=== PATIENT | male | born 1935 ===

== ENCOUNTER 2016-06-06 05:07 | Inpatient (IN) | payer MEDICARE ==
[~2016-06-06] VITALS: Ht 175.3 cm; Wt 78.7 kg
--- NOTE | 2016-06-06 20:30 | ER ---
ADMIT: 06/06/2016 RM/LOC: ER [facility] MR#: [id number] [id number] [place], [place] [address] [place] [address] Emergency Room Report SEX: M AGE: 80 : 1935 DATE: 06/06/2016 CHIEF COMPLAINT: Respiratory distress. HISTORY OF PRESENT ILLNESS: The patient is an 80-year-old male, transferred by [facility] for escalating respiratory distress, hypoxemia, hemoptysis with foul-looking sputum for the past 3 days. The patient is an O2 dependent COPD patient, recently admitted to [facility]. The patient quit smoking approximately 15 years ago after greater than 50-pack year history. PAST MEDICAL HISTORY: ILLNESSES: Hypertension, O2 dependent COPD, chronic kidney disease, low back pain, hyperlipidemia, dementia, hypothyroidism. OPERATIONS: None. ALLERGIES: JULISSA. MEDICATIONS: Please see [facility] MAR. SOCIAL HISTORY: , retired. Past smoker. No alcohol or illicit drugs. FAMILY HISTORY: Negative per chart review. REVIEW OF SYSTEMS: A 12-point review of systems negative for all other systems, illnesses, or operations except as outlined above. PHYSICAL EXAMINATION: VITAL SIGNS: Temp 96.1, pulse 90, respirations 18, BP 130/70, SaO2 of 92% for 10 L. GENERAL: Mild respiratory distress. Maintaining sats mid 90s on high-flow O2, typically on 2.5. HEENT: Normocephalic. No evidence of epistaxis, rhinorrhea, or otorrhea. NECK: Supple without lymphadenopathy or thyromegaly. CHEST: Breath sounds equal, diminished with faint expiratory wheeze. HEART: Regular rate and rhythm without murmur, gallop, or edema. ABDOMEN: Soft, nontender, nondistended without mass or megaly. Bowel sounds hypoactive. EXTREMITIES: No evidence of Homans sign, synovitis, or dermatitis. Neuro: EOMI. PERRLA. No evidence of drift, dysarthria, or ataxia. Gait not assessed. MEDICAL DECISION MAKING: Patient given continuous albuterol and DuoNeb, magnesium, Solu-Medrol, and Levaquin with improvement, still maintained high- flow O2. Chest x-ray confirms right greater than left lower lobe pneumonia. CTA chest shows no obvious large PE. Radiology report pending. WBC 14.6, lactic 1.6, CRP 22.5, creatinine 1.7, glucose 103, BNP 978, D-dimer 1.45, troponin less than 0.015. EKG showed sinus rhythm with APCs, left atrial enlargement, right bundle-branch block with left anterior fascicular block, ADMIT: 06/06/2016 RM/LOC: [facility] MR#: [id number] [address] [address] [place] [address] Emergency Room Report SEX: M AGE: 80 : 1935 and [facility], no prior tracing. Discussed findings and disposition with Dr. Miller, who agreed and gave orders to nursing staff. DIAGNOSES: 1. Acute exacerbation of chronic obstructive pulmonary disease. 2. Bibasilar pneumonia, right greater than left. RECOMMENDATION: Admit inpatient for Dr. Miller. ADMISSION AND DISCHARGE CONDITION: Fair. Patient is a full code. Fernandez Booth MD/ rupesh JOB #: [id number] CC: Fernandez Booth MD, Attending Physician Talon Miller MD, Family Physician
--- NOTE | 2016-06-07 14:35 | CO ---
ADMIT: 06/06/2016 RM/LOC: 307 [facility] MR#: [id number] [address] [address] [place] [address] Consultation SEX: M AGE: 80 : 1935 DATE OF CONSULTATION: 06/07/2016 ATTENDING PHYSICIAN: Alfonso Moralez CONSULTING PHYSICIAN: Estephania Castellano APRN TIME IN: 1000 hours. TIME-OUT: 1030 hours. REASON FOR CONSULTATION: Supportive care consultation was requested by Dr. Moralez for discussion of goals for care and code status. HISTORY OF PRESENT ILLNESS: Mr. Santoyo is an 80-year-old, male with a history of severe COPD, for which he wears chronic oxygen therapy. He has most recently been living at the [facility]. He is admitted on 06/06 with increasing shortness of breath, cough, and fever. CT of the chest revealed bilateral opacities and was negative for pulmonary embolism. He remains in the ICU being treated for bilateral pneumonia. Speech Therapy did evaluate him and he was not found to be an aspiration risk. Apparently, there has been some confusion regarding his wishes in terms of resuscitative measures. His paperwork from the [facility] does designate him as a do not resuscitate in terms of CPR and defibrillation, however, it does not specify anything in terms of ventilator support. Dr. Moralez did have a conversation with the patient initially and he said that intubation was okay. However, there has been times this morning that the patient has been verbalizing that he does not want to be poked for lab any longer, and that he perhaps does not want to pursue aggressive interventions. Due to his complexities, supportive care consultation was requested to discuss goals for care. In terms of advanced directives, the patient does have the [facility] paperwork on file which states that he is a do not resuscitate. It is also of note that he initialed the box on the advanced directives for no further treatment, however, he did not check specifically what he would want. Apparently, there was discussion with the patient's son in the beginning of his hospital stay, and he did direct that the patient be treated for his current condition. The patient's son Manas Santoyo is his next of kin decision maker. His phone #[phone]. Symptomatically, the patient is weak and debilitated. He is dyspneic with conversation. He denies pain or other discomfort. It is of note that he does have a documented diagnosis of mild cognitive impairment, it is evident during our conversation that at times he has a hard time with details of conversation and recalling specifics. PAST MEDICAL HISTORY: 1. COPD for which he wears oxygen. 2. Hypertension. 3. Mild cognitive impairment. ADMIT: 06/06/2016 RM/LOC: [address] [place] [address] MR#: [id number] [address] [address] [place] [address] Consultation SEX: M AGE: 80 : 1935 4. Hypothyroidism. 5. Hyperlipidemia. 6. Stage 3 chronic kidney disease. 7. Chronic low back pain. ALLERGIES: THE PATIENT IS ALLERGIC TO NICKEL. CURRENT MEDICATIONS: Please see the patient's MAR for specific routes and dosages. His current medications are as follows. 1. Pepcid. 2. Senokot. 3. MiraLax. 4. Levaquin. 5. Zosyn. 6. DuoNeb. 7. Solu-Medrol. 8. Vancomycin. 9. Tums. 10.Asmanex. 11.Spiriva. 12.Synthroid. 13.Tylenol. 14.Nitrostat. SOCIAL HISTORY: The patient lives at the [facility]. He currently does not use alcohol or tobacco, but does have a past smoking history. FAMILY HISTORY: Reviewed and noncontributory. FUNCTIONAL REVIEW: Prior to his hospital stay, he states that he could ambulate and sit at the edge of the bed at the [facility]. He was requiring assistance with ADLs. His palliative performance scale prior to admission sounds to be around 50% to 60%. Currently, he is mostly in bed. He is requiring mainly assistance. His intake is normal to reduced. He is a little confused. His current palliative performance score is 40%. REVIEW OF SYSTEMS: A 10-point review of systems was completed and other than those pertinent positives and negatives mentioned in the HPI, it is negative. PHYSICAL EXAMINATION: GENERAL: The patient is examined in the bed. He is in no acute distress. VITAL SIGNS: Temperature 97.8, pulse 84, respirations 16, blood pressure 125/45, oxygen 91% on 6 L per nasal cannula. HEENT: Head is normocephalic. Pupils are equal, round, and reactive with a diameter of 3 mm bilaterally. Oral mucosa pink and moist with fair dentition. NECK: Supple. RESPIRATORY: Respirations are slightly labored with conversation. LUNGS: Diminished throughout bilaterally. ADMIT: 06/06/2016 RM/LOC: 307 [facility] MR#: [id number] [address] [place] [address] [place] [address] Consultation SEX: M AGE: 80 : 1935 CARDIOVASCULAR: Rate and rhythm regular without murmurs, rubs, or gallops. No edema noted. GASTROINTESTINAL: Soft, nontender. Bowel sounds are positive. MUSCULOSKELETAL: Generalized weakness. No obvious joint deformities. INTEGUMENTARY: Skin turgor is fair. No rashes or wounds noted. NEUROLOGIC: Alert and oriented x3, but as mentioned, he will demonstrate intermittent mild confusion by making statements that contradict each other. PSYCHIATRIC: Calm and cooperative. No agitation or delirium noted. DIAGNOSTIC DATA: Sodium 139, potassium 3.6, BUN 44, creatinine 1.8, total protein 6.1, albumin 2.5. WBC is 16.7, hemoglobin 12.6, hematocrit 37.4, platelets are 200. IMPRESSION: 1. Physical debility. 2. Mild cognitive impairment. 3. Fatigue. 4. Malaise. 5. Dyspnea with conversation. 6. Moderate protein-calorie malnutrition. 7. Acute on chronic hypoxic respiratory failure. 8. Bilateral healthcare-associated pneumonia. 9. Severe chronic obstructive pulmonary disease. 10.A [address] lung nodule on CT scan. 11.Chronic kidney disease. 12.Palliative care. 13.The patient is currently a DNR, however, okay for intubation. PLAN: I was able to meet with the patient at the bedside. As mentioned, he is alert and oriented x3, but at times seems to be mildly confused regarding details, and will sometimes say statements that contradict each other. For example, I did discuss his wishes regarding intubation and he states "I am a DNR." He confirms no CPR and states that he would not want to go on the ventilator. He is able to tell me that he would if he did not go on the ventilator should he need it. He states that he is ready to "go see [place]." In the next sentence, however, when we are talking about his oxygen simple mask because he has been refusing to wear it at times, he states he wants to do whatever he needs to in terms of oxygen in order to get through his current status. Overall, he is fairly consistent about the do not resuscitate/do not ADMIT: 06/06/2016 RM/LOC: 307 [facility] MR#: [id number] [address] [place], [place] [address] Consultation SEX: M AGE: 80 : 1935 intubate status, but with his mild confusion and statements I do feel that we need to confirm his wishes with his son before we change any orders. I did place a call to the patient's son Manas and a message was left for him to call me back. At this time, the patient is okay with our current level of care including antibiotics to try to get him through his pneumonia. I will await call back from the son and hopefully get direction in terms of code status. We would like to thank Dr. Moralez for the invitation to participate in this patient's care. Total consultation time was 30 minutes from 1000 hours to 1030 hours with 18 minutes from 1002 hours to 1020 hours spent [id number] with the patient. We will continue to follow along in the care of this patient. Estephania Castellano APRN/ rupesh JOB #: [id number] CC: Alfonso Moralez, Attending Physician Alfonso Moralez, Family Physician
--- NOTE | 2016-06-10 09:10 | NUR ---
PATIENT REFUSING VITAL SIGNS CHECK AND ASSESSMENT. YELLING AT STAFF MEMBERS. RN WILL ATTEMPT AGAIN LATER TO CHECK VS AND DO A HEAD TO TOE ASSESSMENT.
--- NOTE | 2016-06-10 17:48 | HP ---
ADMIT: 06/06/2016 RM/LOC: 307 [facility] MR#: [id number] [address] [address] [place] [address] History and Physical SEX: M AGE: 80 : 1935 DATE OF SERVICE: CHIEF COMPLAINT: Chest pain and cough. HISTORY OF PRESENT ILLNESS: The patient is an 80-year-old gentleman, who had past medical history of severe COPD with chronic respiratory failure, requiring at least 2 to 4 L of oxygen, who presents to the [facility] Emergency Room from the [facility], where he complained of shortness of breath with productive cough and fever going on at least the last 4 days, worse in the last 48 hours with even a little bit of brown sputum/hemoptysis. The patient notes some chest discomfort when he coughs. Otherwise, does feel just a little short of breath. In the emergency room, he underwent a CT of the chest that did show bibasilar opacities. He was afebrile at that time. His CT was negative for PE but he was requiring about 10 L of oxygen. He was admitted for further evaluation and treatment. PAST MEDICAL HISTORY: On review of the chart shows: 1. COPD. 2. Chronic hypoxic respiratory failure, requiring at least 2-4 L. 3. Hypertension. 4. Mild cognitive impairment. 5. Hypothyroidism. 6. Hyperlipidemia. 7. Stage 3 chronic kidney disease. 8. Chronic low back pain. ALLERGIES: INCLUDE NICKEL CAUSING A RASH. MEDICATIONS: Include: 1. Lisinopril. 2. Hydrochlorothiazide. 3. Synthroid. 4. Atrovent inhaler. 5. Miconazole powder. 6. Multivitamin. 7. Aspirin 81. 8. Fish oil. 9. Spiriva. 10.Zinc oxide. 11.Neosporin. 12.Miconazole. 13.Tylenol. 14.DuoNeb. SOCIAL HISTORY: Lives at [facility]. Current nonsmoker and nondrinker. Quit smoking in 2001. Next of kin is his son. He is a DNR. FAMILY HISTORY: Noncontributory. ADMIT: 06/06/2016 RM/LOC: 307 [facility] MR#: [id number] [address] [address] [place] [address] History and Physical SEX: M AGE: 80 : 1935 REVIEW OF SYSTEMS: As noted above. All other systems are reviewed and negative. PHYSICAL EXAMINATION: VITAL SIGNS: Upon arrival, 96.1, 80, 18, 150/70. GENERAL: This is a gentleman, appears his stated age. No apparent distress. He is awake. He is alert. He is oriented x3 and cooperative to the examiner. HEENT: Normocephalic and atraumatic. Mucous membranes are dry. NECK: Supple. LUNGS: He has very poor air movement. He is diminished with rales at the bases bilaterally. HEART: Tachy but regular. I do not hear any murmurs. ABDOMEN: Soft, nontender, and nondistended. Positive bowel sounds. EXTREMITIES: Show no edema. He has good pulses. SKIN: Shows no rashes. NEUROLOGIC: Cranial nerves intact. He is moving all extremities. LABORATORY AND X-RAY DATA: Lab work shows hemoglobin of 15.2, his white count is 14.6, 204,000 platelets. Sodium 138, potassium 3.7, BUN 41 with creatinine of 1.7, his chloride is 108 with bicarb of 22. His procalcitonin was 3.6 with lactic acid of 1.6. CT scan of the chest showed no pulmonary embolism. There were severe emphysema noted as well as bibasilar opacities, questionable 5 mm left upper lobe pulmonary nodule. Otherwise, there were no other bilateral calcified nodules noted. ASSESSMENT: 1. [id number]-[id number] hypoxic respiratory failure. 2. Bibasilar consolidations consistent with healthcare-associated pneumonia with concern for Gram-negative and Gram-positive resistant organisms. 3. Severe chronic obstructive pulmonary disease/emphysema/structural lung disease. 4. 5 mm left upper lobe pulmonary nodule. ADMIT: 06/06/2016 RM/LOC: 307 [facility] MR#: [id number] [address] [address] [place] [address] History and Physical SEX: M AGE: 80 : 1935 5. Hypothyroidism. PLAN: At this point, the patient is feeling not hypoxic. The blood gas is pending. He is not tachypneic right now. He is saturating in the high 90s on 10 L. We are going to try taper him if we can back to cannula. He is awake and alert. I think his CO2 probably is okay but we will see what that looks like on his ABG. Plan broad-spectrum antibiotics, IV fluids, IV steroids, and aggressive pulmonary toilet. The patient is DNR but is okay with intubation if needed. We are going to grab a respiratory viral panel on him as well and no anticoagulation is planned due to this hemoptysis. We will try to grab a sputum culture for Gram-stain and culture and sensitivity and we will follow him very closely here in the ICU. Alfonso Moralez MD/ rupesh JOB #: [id number] CC: Alfonso Moralez, Attending Physician Alfonso Moralez, Family Physician
[2016-06-14] MEDS ORDERED: SENOKOT S1 TAB PO (18:12)
[2016-06-14] MEDS ORDERED: LEVAQUIN DPS750 MG PO (18:12)
[2016-06-14] MEDS ORDERED: PEPCID DPS20 MG PO (18:12)
[2016-06-14] MEDS ORDERED: MUCINEX600 MG PO (18:12)
[2016-06-14] MEDS ORDERED: TUMS DPS500 MG PO (18:13)
[2016-06-14] MEDS ORDERED: SYNTHROID112 MCG PO (18:13)
[2016-06-14] MEDS ORDERED: ASMANEX1 INH IH (18:13)
[2016-06-14] MEDS ORDERED: SPIRIVA18 MCG IH (18:14)
[2016-06-14] MEDS ORDERED: MIRALAX PACKET17 GM PO (18:14)
[2016-06-14] MEDS ORDERED: MAALOX DPS30 ML PO (18:14)
[2016-06-14] MEDS ORDERED: SURFAK DPS240 MG PO (18:14)
[2016-06-14] MEDS ORDERED: TYLENOL DPS325 MG PO (18:15)
[2016-06-14] MEDS ORDERED: OCEAN NASAL MIS45 ML NS (18:16)
[2016-06-14] MEDS ORDERED: NITROSTAT0.4 MG SL (18:16)
[2016-06-14] MEDS ORDERED: ACETADOTE D200 MG/ML IH (18:17)
--- NOTE | 2016-06-17 16:26 | DS ---
ADMIT: 06/06/2016 RM/LOC: 415 [facility] MR#: [id number] [address] [address] [place] [address] Discharge Summary SEX: M AGE: 80 : 1935 ADMISSION DATE: 06/06/2016 DISCHARGE DATE: 06/13/2016 DISCHARGE DIAGNOSES: 1. Acute on chronic hypoxic respiratory failure. 2. Severe emphysema. 3. Severe COPD (chronic obstructive pulmonary disease) with exacerbation. 4. Healthcare-associated pneumonia. 5. Cognitive impairment. 6. Hypertension. 7. Chronic kidney disease. 8. Hyperlipidemia. CONSULTATIONS: None. PROCEDURES: None. REASON FOR ADMISSION: A very pleasant 80-year-old gentleman who presents to [facility] emergency room as a transfer patient from the [facility] with several days of worsening shortness of breath, cough, and fever. The patient was admitted for further evaluation and treatment. For complete details, please see H and P dictated on day of admission. HOSPITAL COURSE: At the time of admission, the patient was covered with broad- spectrum antibiotics given the risk of resistant gram-positive or gram- negative organisms given his structural lung disease and living in a skilled chronic care facility. He initially required 10+ L of oxygen per simple mask. His blood gas looked good. There was no CO2 retention. He was slowly titrated to 6-7 L per nasal cannula. [facility] He was started on IV steroids, aggressive bronchodilators, pulmonary toilet with Mucomyst and DuoNebs. The patient initially had some hemoptysis, so we held back on any DVT prophylaxis. That cleared up nicely. The patient just did not progress, continued to require 6 or 7 L of oxygen. The patient began to refuse both respiratory treatments. He refused physical therapy. We reimaged his chest. That did show improvement, continued severe COPD and severe emphysematous changes, but also showed improvement of his consolidations; however, we just were not able to wean oxygen. We got it down to about 6 L. With the patient refusing treatments and some of his cognitive impairment, I questioned his decision-making abilities. I contacted his son. The patient had said on multiple occasions that he just did not want to deal with all of this anymore and expressed interest in comfort care or hospice. He was seen by palliative/supportive care. I visited with his son who was in agreement ADMIT: 06/06/2016 RM/LOC: 415 [facility] MR#: [id number] [address] [address] [place] [address] Discharge Summary SEX: M AGE: 80 : 1935 with his father's wishes, especially as we were not able to get his oxygen tapered. The patient described just overall weakness and continued dyspnea that we just could not fix after greater than 8 days of hospitalization. Thus I talked to the [facility], and we will transfer him back to be evaluated for hospice/comfort care. DISCHARGE INSTRUCTIONS: He will finish up his steroid burst and taper and the remainder of his medications to be addressed by his primary providers at the [facility]. His activity will be as tolerated with oxygen just for comfort. His diet will be as tolerated. Alfonso Moralez MD/ fariha JOB #: [id number] CC: Alfonso Moralez MD, Attending Physician Alfonso Moralez MD, Family Physician . [facility]
== END 2016-06-13 11:02 | DRG 871 ==
LOC: ER 05:07 → 3ICU 07:10 → 4PCU 06-08 11:12
PROVIDERS: ADMIT Internal Medicine
DX: A41.9 Sepsis, unspecified organism (principal); J96.21 Acute and chronic respiratory failure with hypoxia; J18.9 Pneumonia, unspecified organism; J44.0 Chronic obstructive pulmonary disease with (acute) lower respiratory infection; E44.0 Moderate protein-calorie malnutrition; F03.90 Unspecified dementia, unspecified severity, without behavioral disturbance, psychotic disturbance, mood disturbance, and anxiety; N18.3 Chronic kidney disease, stage 3 (moderate); R04.2 Hemoptysis; J44.1 Chronic obstructive pulmonary disease with (acute) exacerbation; R65.20 Severe sepsis without septic shock; K59.00 Constipation, unspecified; Z99.81 Dependence on supplemental oxygen; R91.1 Solitary pulmonary nodule; I12.9 Hypertensive chronic kidney disease with stage 1 through stage 4 chronic kidney disease, or unspecified chronic kidney disease; E03.9 Hypothyroidism, unspecified; I45.10 Unspecified right bundle-branch block; G31.84 Mild cognitive impairment of uncertain or unknown etiology; E78.5 Hyperlipidemia, unspecified; M54.5 Low back pain; G89.29 Other chronic pain; Z79.82 Long term (current) use of aspirin; Z87.891 Personal history of nicotine dependence; Z66 Do not resuscitate